=== PATIENT | female | born 1975 | race Caucasian/White ===

== ENCOUNTER → 2017-12-06 | Outpatient (CLI) | payer OTHER ==
[~2017-12-06] MED LIST: BUSP10TA3 PO; CLOB30CR5 TP; GLIM2TAB3 PO; LISI-613 PO; METF10004 PO; METF500T6 PO; OMEP20TA25 PO; VIT D3 PO
[2017-12-06 11:32] LABS: ALBUMIN 3.7 g/dL (3.5-5.0); BILIRUBIN,TOTAL 0.6 mg/dL (0.2-1.0); CREATININE 0.7 mg/dL (0.5-1.5); POTASSIUM 3.9 mmol/L (3.5-5.1); THYROID STIMULATING HORMONE 1.24 uIU/mL (0.36-3.74); TOTAL PROTEIN, SERUM 7.8 g/dL (6.0-8.3)
[2017-12-06 11:34] LABS: HEMOGLOBIN A1C 7.2 % (4.0-6.0)
[2017-12-07 09:18] LABS: VITAMIN D, 25-HYDROXY 30.9 ng/mL (30.0-100.0)
== END | disposition home or self-care (01) ==
LOC: LAB 10:43
PROVIDERS: ATTEND Family Medicine
DX: E11.649 Type 2 diabetes mellitus with hypoglycemia without coma (principal); E55.9 Vitamin D deficiency, unspecified; E78.2 Mixed hyperlipidemia; F32.9 Major depressive disorder, single episode, unspecified
CPT/HCPCS: 36415; 80053; 80061; 82306; 83036; 84439; 84443; 84480; 84481

== ENCOUNTER → 2018-01-17 | Outpatient (CLI) | payer OTHER ==
[2018-01-17 14:45] LABS: BASOPHILS % (AUTO) 0.6 % (0.0-5.0); EOSINOPHILS % (AUTO) 1.8 % (0.0-8.0); HEMATOCRIT 42.4 % (36-48); LYMPHOCYTES % (AUTO) 25.3 % (21.0-51.0); MEAN CORPUSCULAR HEMOGLOBIN 30.4 pg (27.0-33.0); MEAN CORPUSCULAR HGB CONC 34.5 g/dL (32.0-36.0); MEAN CORPUSCULAR VOLUME 88.1 fL (79-99); MONOCYTES % (AUTO) 7.1 % (3.0-13.0); NEUTROPHILS % (AUTO) 65.2 % (40.0-77.0); PLATELET COUNT (AUTO) 231 K/uL (130-400); RED BLOOD CELL COUNT(AUTO) 4.81 MIL/uL (4.00-5.50); RED CELL DISTRIBUTION WIDTH 12.6 % (11.0-15.5); WHITE BLOOD COUNT (AUTO) 9.5 K/uL (4.8-10.8)
[2018-01-17 14:58] LABS: ALBUMIN 3.8 g/dL (3.5-5.0); BILIRUBIN,TOTAL 0.4 mg/dL (0.2-1.0); CREATININE 0.7 mg/dL (0.5-1.5); POTASSIUM 4.2 mmol/L (3.5-5.1)
[2018-01-17 15:10] LABS: APPEARANCE,URINE Clear (CLEAR); BILIRUBIN,URINE Negative (NEGATIVE); COLOR,URINE Yellow (YELLOW); GLUCOSE, URINE (UA) 500 mg/dL (NEGATIVE); KETONES,URINE Negative (NEGATIVE); LEUKOCYTE ESTERASE ,URINE Negative (NEGATIVE); NITRATE,URINE Negative (NEGATIVE); OCCULT BLOOD,URINE Negative (NEGATIVE); PROTEIN,URINE Negative (NEGATIVE); UROBILINOGEN,URINE 0.2 mg/dL (0.2-1.0)
[2018-01-17 15:18] LABS: BACTERIA,URINE Rare /HPF (None Seen); RBC,URINE 0-1 /HPF (0-1); SQUAMOUS EPITHELIAL CELL,UR Rare /LPF (0-2); WBC,URINE 0-1 /HPF (0-1)
== END ==
LOC: LAB 14:21
PROVIDERS: ATTEND Family Medicine
DX: R10.11 Right upper quadrant pain (principal); R19.7 Diarrhea, unspecified
CPT/HCPCS: 36415; 80053; 81001; 85025; 87088

== ENCOUNTER → 2018-01-26 | Outpatient (CLI) | payer OTHER | END | disposition home or self-care (01) | LOC: RAH 08:02 | PROVIDERS: ATTEND Family Medicine | DX: K76.0 Fatty (change of) liver, not elsewhere classified (principal); R19.7 Diarrhea, unspecified | CPT/HCPCS: 76700 ==

== ENCOUNTER 2018-03-01 07:09 | Emergency (ER) | payer OTHER ==
[2018-03-01] MEDS ORDERED: ONDANSETRON HCL MDV 20ML 2 MG/ML VIAL ONE (07:38)
[2018-03-01] MEDS ORDERED: ASPIRIN 325 MG TABLET ONE (07:38)
[2018-03-01] MEDS ORDERED: KETOROLAC TROMETHAMINE 30MG/ML ONE (07:38)
[2018-03-01] MEDS ORDERED: SODIUM CHLORIDE 0.9% 500ML 500 ML IV ONE (07:39)
[2018-03-01 07:42] LABS: BASOPHILS % (AUTO) 0.7 % (0.0-5.0); EOSINOPHILS % (AUTO) 1.9 % (0.0-8.0); LYMPHOCYTES % (AUTO) 28.7 % (21.0-51.0); MEAN CORPUSCULAR HEMOGLOBIN 30.4 pg (27.0-33.0); MEAN CORPUSCULAR HGB CONC 34.6 g/dL (32.0-36.0); MEAN CORPUSCULAR VOLUME 87.7 fL (79-99); MONOCYTES % (AUTO) 7.3 % (3.0-13.0); NEUTROPHILS % (AUTO) 61.4 % (40.0-77.0); PLATELET COUNT (AUTO) 209 K/uL (130-400); RED BLOOD CELL COUNT(AUTO) 4.56 MIL/uL (4.00-5.50); RED CELL DISTRIBUTION WIDTH 12.5 % (11.0-15.5); WHITE BLOOD COUNT (AUTO) 8.1 K/uL (4.8-10.8)
[2018-03-01 07:52] LABS: CREATININE 0.7 mg/dL (0.5-1.5); POTASSIUM 4.2 mmol/L (3.5-5.1)
[2018-03-01 08:06] LABS: B-TYPE NATRIURETIC PEPTIDE 8 pg/mL (0-100)
[2018-03-01 08:08] LABS: INR 0.89 (0.85-1.15); PARTIAL THROMBOPLASTIN TIME 25.9 SEC (26.3-35.5); PROTHROMBIN TIME 9.4 SEC (9.6-11.6)
[2018-03-01 08:28] LABS: ALBUMIN 3.6 g/dL (3.5-5.0); BILIRUBIN,TOTAL 0.4 mg/dL (0.2-1.0); CREATINE KINASE MB 0.6 ng/mL (0.5-3.6); TOTAL PROTEIN, SERUM 7.6 g/dL (6.0-8.3)
[2018-03-01] MEDS ORDERED: MORPHINE SULFATE 4 MG/1ML SYG ONE (09:11)
== END 2018-03-01 10:34 | disposition home or self-care (01) ==
LOC: EDH 07:09
DX: R07.9 Chest pain, unspecified (principal); R10.13 Epigastric pain; E11.9 Type 2 diabetes mellitus without complications; E78.5 Hyperlipidemia, unspecified; I10 Essential (primary) hypertension; Z88.8 Allergy status to other drugs, medicaments and biological substances; Z90.710 Acquired absence of both cervix and uterus
CPT/HCPCS: 36415; 71045; 74176; 80053; 82550; 82553; 83690; 83874; 83880; 84484; 84702; 85025; 85610; 85730; 93005; 94761; 96361; 96374; 96375; 99285; J1885; J2270; J7040

== ENCOUNTER → 2018-04-01 | Outpatient (CLI) | payer OTHER ==
[2018-04-01 10:13] LABS: EOSINOPHILS % (AUTO) 1.3 % (0.0-8.0); HEMATOCRIT 42.7 % (36-48); LYMPHOCYTES % (AUTO) 28.7 % (21.0-51.0); MEAN CORPUSCULAR HEMOGLOBIN 30.2 pg (27.0-33.0); MEAN CORPUSCULAR HGB CONC 34.5 g/dL (32.0-36.0); MEAN CORPUSCULAR VOLUME 87.7 fL (79-99); PLATELET COUNT (AUTO) 202 K/uL (130-400); RED BLOOD CELL COUNT(AUTO) 4.86 MIL/uL (4.00-5.50); RED CELL DISTRIBUTION WIDTH 12.5 % (11.0-15.5); WHITE BLOOD COUNT (AUTO) 7.6 K/uL (4.8-10.8)
[2018-04-01 10:20] LABS: HEMOGLOBIN A1C 7.2 % (4.0-6.0)
[2018-04-01 10:26] LABS: CHOLESTEROL 218 mg/dL (<200); HDL CHOLESTEROL 38 mg/dL (35-85); LDL DIRECT 139 mg/dL (0-99); TRIGLYCERIDES 250 mg/dL (30-200)
== END | disposition home or self-care (01) ==
LOC: LAB 09:29
PROVIDERS: ATTEND Family Medicine
DX: E11.649 Type 2 diabetes mellitus with hypoglycemia without coma (principal); E78.2 Mixed hyperlipidemia; I88.8 Other nonspecific lymphadenitis; E55.9 Vitamin D deficiency, unspecified
CPT/HCPCS: 36415; 80061; 82306; 83036; 85025

== ENCOUNTER → 2018-05-09 | Outpatient (CLI) | payer OTHER | END | disposition home or self-care (01) | LOC: RAH 16:36 | PROVIDERS: ATTEND Physical Medicine & Rehabilitation | DX: M54.2 Cervicalgia (principal); M54.16 Radiculopathy, lumbar region | CPT/HCPCS: 72040; 72110 ==

== ENCOUNTER → 2018-09-02 | Outpatient (CLI) | payer OTHER ==
[~2018-09-02] MED LIST changes: +BUSP5TAB3 PO; +GABA-529 PO; +METF-444 PO; +METF-446 PO; -METF10004 PO; -METF500T6 PO; +ROSU10TA27 PO
== END | disposition home or self-care (01) ==
LOC: RAH 11:51
PROVIDERS: ATTEND Internal Medicine
DX: M54.6 Pain in thoracic spine (principal); M53.3 Sacrococcygeal disorders, not elsewhere classified; Z79.899 Other long term (current) drug therapy
CPT/HCPCS: 36415; 72072; 72202; 85651; 86140; 86431; 86812

== ENCOUNTER 2018-09-05 06:52 | Observation (INO) | payer OTHER ==
[~2018-09-05] VITALS: Ht 149.9 cm; Wt 77.1 kg
[~2018-09-05 06:52] MED LIST changes: -BUSP5TAB3 PO; -GABA-529 PO; -ROSU10TA27 PO
[2018-09-05] MEDS ORDERED: NITROGLYCERIN 0.4 MG SL TAB SL ONE (08:09)
[2018-09-05] MEDS ORDERED: ASPIRIN 81MG TAB.CHEW ONE (08:09)
[2018-09-05 08:11] LABS: BASOPHILS % (AUTO) 0.6 % (0.0-5.0); HEMATOCRIT 40.9 % (36-48); LYMPHOCYTES % (AUTO) 30.5 % (21.0-51.0); MEAN CORPUSCULAR HEMOGLOBIN 29.7 pg (27.0-33.0); NEUTROPHILS % (AUTO) 61.9 % (40.0-77.0); PLATELET COUNT (AUTO) 194 K/uL (130-400); RED BLOOD CELL COUNT(AUTO) 4.54 MIL/uL (4.00-5.50); RED CELL DISTRIBUTION WIDTH 12.3 % (11.0-15.5); WHITE BLOOD COUNT (AUTO) 10.3 K/uL (4.8-10.8)
[2018-09-05 08:34] LABS: APPEARANCE,URINE CLEAR (CLEAR); BILIRUBIN,URINE NEGATIVE (NEGATIVE); COLOR,URINE YELLOW (YELLOW); GLUCOSE, URINE (UA) NEGATIVE (NEGATIVE); KETONES,URINE NEGATIVE (NEGATIVE); LEUKOCYTE ESTERASE ,URINE NEGATIVE (NEGATIVE); NITRATE,URINE NEGATIVE (NEGATIVE); OCCULT BLOOD,URINE NEGATIVE (NEGATIVE); PROTEIN,URINE NEGATIVE (NEGATIVE); UROBILINOGEN,URINE 0.2 mg/dL (0.2-1.0)
[2018-09-05 08:41] LABS: CREATININE 0.7 mg/dL (0.5-1.5); POTASSIUM 4.3 mmol/L (3.5-5.1)
[2018-09-05 08:59] LABS: ALBUMIN 3.7 g/dL (3.5-5.0); BILIRUBIN,TOTAL 0.4 mg/dL (0.2-1.0); TOTAL PROTEIN, SERUM 7.3 g/dL (6.0-8.3)
[2018-09-05] MEDS ORDERED: ONDANSETRON HCL 4 MG/2 ML VIAL ONE (10:10)
[2018-09-05] MEDS ORDERED: MORPHINE SULFATE 4 MG/1ML SYG ONE (10:11)
[2018-09-05] MEDS ORDERED: CLOPIDOGREL BISULFATE 75 MG TAB PO SCH (11:00)
[2018-09-05] MEDS ORDERED: ONDANSETRON HCL 4 MG/2 ML VIAL IV PRN (11:00)
[2018-09-05 11:47] LABS: CREATINE KINASE, TOTAL 37 U/L (21-232); MYOGLOBIN 24 ng/mL (10-92); TROPONIN I < 0.04 ng/mL (0.00-0.06)
[2018-09-05 11:50] VITALS: BP 130/70
[2018-09-05] MEDS ORDERED: GABA-529 PO (12:10)
[2018-09-05] MEDS ORDERED: BUSP5TAB3 PO (12:10)
[2018-09-05] MEDS ORDERED: ROSU10TA27 PO (12:10)
[2018-09-05] MEDS: NITROGLYCERIN 1GM/1 INCH PACKET TD SCH ×2 (13:37→23:36)
[2018-09-05] MEDS: SODIUM CHLORIDE 0.9% 1000ML 1,000 ML IV SCH ×2 (13:37→22:33)
[2018-09-05 16:00] VITALS: BP 115/75
[2018-09-05] MEDS: ACETAMINOPHEN 325 MG TAB PO PRN (18:24)
[2018-09-05 19:00] VITALS: BP 125/68
[2018-09-05] MEDS: METOPROLOL TARTRATE 25 MG TAB PO SCH (20:28)
[2018-09-05] MEDS: MORPHINE SULFATE 2 MG/ML 1ML SYG IV PRN (20:51)
[2018-09-05 23:00] VITALS: BP 112/63
[2018-09-06 03:00] VITALS: BP 98/56
[2018-09-06] MEDS: NITROGLYCERIN 1GM/1 INCH PACKET TD SCH ×2 (03:00→12:20)
[2018-09-06] MEDS: ACETAMINOPHEN 325 MG TAB PO PRN ×3 (05:49→16:27)
[2018-09-06] MEDS: SODIUM CHLORIDE 0.9% 1000ML 1,000 ML IV SCH (06:56)
[2018-09-06 07:59] VITALS: BP 100/62
[2018-09-06 08:00] VITALS: BP 100/53
[2018-09-06] MEDS: METOPROLOL TARTRATE 25 MG TAB PO SCH ×2 (09:00→19:54)
[2018-09-06] MEDS ORDERED: PANTOPRAZOLE SODIUM 40 MG TABLET.DR PO SCH (09:00)
[2018-09-06] MEDS ORDERED: ENOXAPARIN SODIUM 40 MG/0.4 ML SYRINGE SQ SCH (09:00)
[2018-09-06] MEDS ORDERED: ASPIRIN 325 MG TABLET PO SCH (09:00)
[2018-09-06 11:00] VITALS: BP 109/72
[2018-09-06 16:00] VITALS: BP 105/64
[2018-09-06] MEDS: MORPHINE SULFATE 2 MG/ML 1ML SYG IV PRN (19:54)
[2018-09-06 19:57] VITALS: BP 125/62
[2018-09-07] MEDS ORDERED: ASPIRIN 81MG TAB.CHEW PO SCH (09:00)
== END 2018-09-06 21:50 | disposition home or self-care (01) ==
LOC: EDH 06:52 → EDHIP 10:55 → 4BH 11:46
PROVIDERS: ADMIT Internal Medicine; ATTEND Internal Medicine
DX: R07.89 Other chest pain (principal); E11.9 Type 2 diabetes mellitus without complications; I10 Essential (primary) hypertension; E78.2 Mixed hyperlipidemia; E66.01 Morbid (severe) obesity due to excess calories; G47.33 Obstructive sleep apnea (adult) (pediatric); Z80.51 Family history of malignant neoplasm of kidney; Z82.0 Family history of epilepsy and other diseases of the nervous system; Z82.5 Family history of asthma and other chronic lower respiratory diseases; Z82.49 Family history of ischemic heart disease and other diseases of the circulatory system; Z83.3 Family history of diabetes mellitus; Z90.710 Acquired absence of both cervix and uterus; Z79.899 Other long term (current) drug therapy; Z90.49 Acquired absence of other specified parts of digestive tract; Z88.8 Allergy status to other drugs, medicaments and biological substances
CPT/HCPCS: 36415; 71046; 80053; 81003; 82550 ×2; 82948 ×6; 83690; 83874; 84484 ×3; 85025; 93005 ×2; 93306; 96372; 96374; 96376; 99291; G0378 ×35; J1650; J2270; J2405

== ENCOUNTER → 2018-09-22 | Outpatient (CLI) | payer OTHER ==
[~2018-09-22] MED LIST changes: -BUSP10TA3 PO; +BUSP5TAB3 PO; -CLOB30CR5 TP; +GABA-529 PO; -GLIM2TAB3 PO; +ROSU10TA27 PO; -VIT D3 PO
== END | disposition home or self-care (01) ==
LOC: RAH 12:17
PROVIDERS: ATTEND Family Medicine
DX: N60.02 Solitary cyst of left breast (principal); N60.01 Solitary cyst of right breast; E11.9 Type 2 diabetes mellitus without complications
CPT/HCPCS: 76641; 77066

== ENCOUNTER → 2018-10-25 | Outpatient (CLI) | payer OTHER | END | disposition home or self-care (01) | LOC: SLP 19:55 | PROVIDERS: ATTEND Family Medicine | DX: G47.33 Obstructive sleep apnea (adult) (pediatric) (principal); E11.9 Type 2 diabetes mellitus without complications | CPT/HCPCS: 95810 ==

== ENCOUNTER → 2018-10-27 | Outpatient (CLI) | payer OTHER | END | disposition home or self-care (01) | LOC: SLP 20:27 | PROVIDERS: ATTEND Family Medicine | DX: G47.33 Obstructive sleep apnea (adult) (pediatric) (principal); E11.9 Type 2 diabetes mellitus without complications | CPT/HCPCS: 95811 ==

== ENCOUNTER → 2018-12-02 | Outpatient (CLI) | payer OTHER ==
[2018-12-02 09:29] LABS: APPEARANCE,URINE Clear (CLEAR); BILIRUBIN,URINE Large (NEGATIVE); COLOR,URINE Dark Yellow (YELLOW); GLUCOSE, URINE (UA) Negative (NEGATIVE); KETONES,URINE Trace mg/dL (NEGATIVE); LEUKOCYTE ESTERASE ,URINE Trace (NEGATIVE); NITRATE,URINE Negative (NEGATIVE); OCCULT BLOOD,URINE Negative (NEGATIVE); PROTEIN,URINE Trace (NEGATIVE)
[2018-12-02 09:34] LABS: HEMOGLOBIN A1C 6.6 % (4.0-6.0)
[2018-12-02 09:41] LABS: BACTERIA,URINE None Seen /HPF (None Seen); RBC,URINE None Seen /HPF (0-1); SQUAMOUS EPITHELIAL CELL,UR 0-2 /HPF (0-2)
[2018-12-02 09:51] LABS: ALBUMIN 3.8 g/dL (3.5-5.0); BILIRUBIN,TOTAL 0.5 mg/dL (0.2-1.0); CREATININE 0.7 mg/dL (0.5-1.5); POTASSIUM 4.2 mmol/L (3.5-5.1)
== END | disposition home or self-care (01) ==
LOC: LAB 08:42
PROVIDERS: ATTEND Family Medicine
DX: E11.649 Type 2 diabetes mellitus with hypoglycemia without coma (principal); E55.9 Vitamin D deficiency, unspecified; E78.2 Mixed hyperlipidemia; R39.11 Hesitancy of micturition
CPT/HCPCS: 36415; 80053; 80061; 81001; 82306; 83036; 87088

== ENCOUNTER 2019-03-27 13:20 | Emergency (ER) | payer OTHER ==
[2019-03-27] MEDS ORDERED: ACETAMINOPHEN-CODEINE 300/30MG TAB ONE (14:14)
[2019-03-27] MEDS ORDERED: CYCLOBENZAPRINE HCL 10 MG TABLET ONE (14:14)
[2019-03-27] MEDS ORDERED: KETOROLAC TROMETHAMINE 60 MG/2 ML VIAL ONE (14:14)
== END 2019-03-27 15:27 | disposition home or self-care (01) ==
LOC: EDH 13:20
DX: S43.491A Other sprain of right shoulder joint, initial encounter (principal); S53.491A Other sprain of right elbow, initial encounter; S29.011A Strain of muscle and tendon of front wall of thorax, initial encounter; S63.8X1A Sprain of other part of right wrist and hand, initial encounter; E78.5 Hyperlipidemia, unspecified; I10 Essential (primary) hypertension; E11.9 Type 2 diabetes mellitus without complications; Z90.710 Acquired absence of both cervix and uterus; Z90.49 Acquired absence of other specified parts of digestive tract; Z88.1 Allergy status to other antibiotic agents; Z91.041 Radiographic dye allergy status; V49.49XA Driver injured in collision with other motor vehicles in traffic accident, initial encounter; Y93.89 Activity, other specified; Y92.89 Other specified places as the place of occurrence of the external cause; Y99.8 Other external cause status
CPT/HCPCS: 71101; 73030; 73080; 73130; 96372; 99284; J1885

== ENCOUNTER → 2019-12-15 | Outpatient (CLI) | payer BC ==
[~2019-12-15] MED LIST changes: -ROSU10TA27 PO; +ROSU10TA28 PO
== END | disposition home or self-care (01) ==
LOC: RAH 10:14
PROVIDERS: ATTEND Physical Medicine & Rehabilitation
DX: M51.27 Other intervertebral disc displacement, lumbosacral region (principal); M48.07 Spinal stenosis, lumbosacral region
CPT/HCPCS: 72148

== ENCOUNTER → 2020-01-06 | Outpatient (CLI) | payer BC | END | disposition home or self-care (01) | LOC: RAH 10:51 | PROVIDERS: ATTEND Physical Medicine & Rehabilitation | DX: M54.12 Radiculopathy, cervical region (principal) | CPT/HCPCS: 72141 ==

== ENCOUNTER → 2020-01-15 | Outpatient (CLI) | payer BC | END | disposition home or self-care (01) | LOC: RAH 13:53 | PROVIDERS: ATTEND Physical Medicine & Rehabilitation | DX: M75.32 Calcific tendinitis of left shoulder (principal) | CPT/HCPCS: 73030 ==

== ENCOUNTER → 2020-05-06 | Outpatient (CLI) | payer BC | END | disposition home or self-care (01) | LOC: RAH 15:26 | PROVIDERS: ATTEND Family Medicine | DX: R10.31 Right lower quadrant pain (principal); I87.8 Other specified disorders of veins; Z90.49 Acquired absence of other specified parts of digestive tract ==

== ENCOUNTER 2020-05-08 18:38 | Inpatient (IN) | payer BC ==
[~2020-05-08] VITALS: Ht 149.9 cm; Wt 67.9 kg
[2020-05-08 19:56] LABS: APPEARANCE,URINE Clear (CLEAR); BILIRUBIN,URINE Negative (NEGATIVE); COLOR,URINE Yellow (YELLOW); GLUCOSE, URINE (UA) Negative (NEGATIVE); KETONES,URINE 15 mg/dL (NEGATIVE); LEUKOCYTE ESTERASE ,URINE Negative (NEGATIVE); NITRATE,URINE Negative (NEGATIVE); OCCULT BLOOD,URINE Negative (NEGATIVE); PROTEIN,URINE Negative (NEGATIVE)
[2020-05-08] MEDS ORDERED: ONDANSETRON HCL 4 MG/2 ML VIAL ONE (20:15)
[2020-05-08] MEDS ORDERED: MORPHINE SULFATE 4 MG/1ML SYG ONE ×2 (20:16→21:28)
[2020-05-08 20:19] LABS: BASOPHILS % (AUTO) 0.4 % (0.0-5.0); EOSINOPHILS % (AUTO) 1.3 % (0.0-8.0); HEMATOCRIT 43.1 % (36-48); LYMPHOCYTES % (AUTO) 28.5 % (21.0-51.0); MEAN CORPUSCULAR HGB CONC 32.9 g/dL (32.0-36.0); MEAN CORPUSCULAR VOLUME 91.1 fL (79-99); MONOCYTES % (AUTO) 8.1 % (3.0-13.0); NEUTROPHILS % (AUTO) 61.3 % (40.0-77.0); PLATELET COUNT (AUTO) 199 K/uL (130-400); RED BLOOD CELL COUNT(AUTO) 4.73 MIL/uL (4.00-5.50); RED CELL DISTRIBUTION WIDTH 12.4 % (11.0-15.5); WHITE BLOOD COUNT (AUTO) 7.9 K/uL (4.8-10.8)
[2020-05-08 20:29] LABS: CREATININE 0.6 mg/dL (0.5-1.5); POTASSIUM 3.6 mmol/L (3.5-5.1)
[2020-05-08 20:30] LABS: INR 0.92 (0.85-1.15); PARTIAL THROMBOPLASTIN TIME 32.4 SEC (26.3-35.5)
[2020-05-08 20:33] LABS: ALBUMIN 3.9 g/dL (3.5-5.0); BILIRUBIN,TOTAL 0.6 mg/dL (0.2-1.0); TOTAL PROTEIN, SERUM 8.3 g/dL (6.0-8.3)
[2020-05-08] MEDS ORDERED: PHARMACY COMMUNICATION MISC SCH (23:45)
[2020-05-08] MEDS ORDERED: SODIUM CHLORIDE 0.9% 1000ML 1,000 ML IV SCH (23:45)
[2020-05-08] MEDS ORDERED: MORPHINE SULFATE 2 MG/ML 1ML SYG IVP PRN (23:45)
[2020-05-08] MEDS ORDERED: ONDANSETRON HCL 4 MG/2 ML VIAL IVP PRN (23:45)
[2020-05-09] MEDS ORDERED: MORPHINE SULFATE 2 MG/ML 1ML SYG ONE (00:57)
[2020-05-09] MEDS ORDERED: ONDANSETRON HCL 4 MG/2 ML VIAL ONE (00:57)
[2020-05-09] MEDS ORDERED: ZOSYN 3.375GM+NS 50ML 50 ML IV ONE (00:57)
[2020-05-09 01:45] VITALS: BP 125/74
[2020-05-09] MEDS ORDERED: SULFAD500 PO ×2 (02:06)
[2020-05-09] MEDS ORDERED: DICY20TA11 PO (02:06)
[2020-05-09] MEDS ORDERED: DULA0.75 SQ ×2 (02:06)
[2020-05-09] MEDS ORDERED: AMOX500C2 PO (02:06)
[2020-05-09 03:20] VITALS: BP 107/60
[2020-05-09] MEDS: ZOSYN 3.375GM+NS 50ML 50 ML IV SCH ×4 (06:10→23:33)
[2020-05-09] MEDS ORDERED: HYDRALAZINE HCL 20 MG/ML VIAL IV PRN (07:45)
[2020-05-09 08:00] VITALS: BP 120/72
[2020-05-09] MEDS: FAMOTIDINE/PF 20 MG/2 ML VIAL IV SCH ×2 (08:16→21:01)
[2020-05-09] MEDS: HYDROMORPHONE HCL 0.5 MG/0.5 ML ML IVP PRN ×3 (08:17→23:34)
[2020-05-09] MEDS: ONDANSETRON HCL 4 MG/2 ML VIAL IVP PRN ×2 (08:48→16:48)
[2020-05-09 11:25] VITALS: BP 109/66
--- NOTE | 2020-05-09 11:30 | NUR ---
MET W PATIENT FOR DC PLANNING. SPOUSE AT BEDSIDE, PATIENT STATES IS INDEPENDENT, ACTIVE, NO DME OR HOME SERVICES, PT IS EMPLOYED, DRIVES, DCP IS HOME, SPOUSE AGA TO PROVIDE TRANSPORT WAITING ON ALTERNATE SURGEON FOR CONSULT. CM TO FOLLOW. Addendum: 05/09/20 at 1809 by SHANE CERVANTES RN CM Amended: Links added.
[2020-05-09] MEDS ORDERED: LACTATED RINGERS 1000ML 1,000 ML IV SCH (15:30)
[2020-05-09 16:00] VITALS: BP 121/69
[2020-05-09] MEDS ORDERED: ACETAMINOPHEN 325 MG TAB ONE (16:30)
--- NOTE | 2020-05-09 16:46 | NUR ---
NUTRITION EDUCATION RD provided Diverticulitis and High Fiber Nutrition Education. RD reviewed reference materials with Pt. Pt discussed previously researched implications. REGGIE answered all of Pt questions. Addendum: 05/09/20 at [address] RD Amended: Links added.
--- NOTE | 2020-05-09 16:48 | NUR ---
NUTRITION NOTE Pt admitted with Diverticulitis with Perforation. Pt NPO pending surgical evaluation. Lab values WNL. Pt with Obesity Class I (BMI 30.2). RD provided Nutrition education. Recommend Heart Healthy, 75gm CC, GI Soft/Provo diet order when medically feasible. RD to continue to monitor. Please notify when additional nutrition concerns arise. Thank you.
--- NOTE | 2020-05-09 18:05 | NUR ---
DISCHARGE DISPOSITION EXPECTED TO HOME, ATTILA TO FOLLOW Addendum: 05/09/20 at 1806 by SHANE CERVANTES RN CM Amended: Links added.
[2020-05-09] MEDS ORDERED: DEXTROSE 50%-WATER 50 ML DISP.SYRIN IV ONE (19:43)
[2020-05-09] MEDS ORDERED: DEXTROSE 5%-LACTATED RINGERS 1,000 ML IV ONE (19:43)
[2020-05-09] MEDS ORDERED: GLUCAGON 1MG KIT 1 MG ML IM PRN (19:45)
[2020-05-09] MEDS ORDERED: DEXTROSE 50%-WATER 50 ML DISP.SYRIN IV PRN (19:45)
[2020-05-09] MEDS: DEXTROSE 5%-LACTATED RINGERS 1,000 ML IV SCH (19:45)
[2020-05-09 19:49] VITALS: BP 133/77
[2020-05-10] VITALS: BP 120/78
[2020-05-10] MEDS: DEXTROSE 5%-LACTATED RINGERS 1,000 ML IV SCH ×2 (03:41→20:09)
[2020-05-10 04:06] VITALS: BP 108/67
[2020-05-10 04:50] LABS: HEMATOCRIT 36.2 % (36-48); MEAN CORPUSCULAR HEMOGLOBIN 30.3 pg (27.0-33.0); MEAN CORPUSCULAR HGB CONC 33.4 g/dL (32.0-36.0); MEAN CORPUSCULAR VOLUME 90.5 fL (79-99); RED CELL DISTRIBUTION WIDTH 11.9 % (11.0-15.5); WHITE BLOOD COUNT (AUTO) 6.9 K/uL (4.8-10.8)
[2020-05-10 05:13] LABS: CREATININE 0.6 mg/dL (0.5-1.5); POTASSIUM 3.6 mmol/L (3.5-5.1)
[2020-05-10 08:00] VITALS: BP 115/58
[2020-05-10] MEDS: FAMOTIDINE/PF 20 MG/2 ML VIAL IV SCH ×2 (08:15→20:09)
[2020-05-10] MEDS: ZOSYN 3.375GM+NS 50ML 50 ML IV SCH ×3 (08:15→23:25)
[2020-05-10] MEDS: HYDROMORPHONE HCL 0.5 MG/0.5 ML ML IVP PRN ×2 (08:37→23:52)
[2020-05-10 12:00] VITALS: BP 119/75
[2020-05-10] MEDS: ACETAMINOPHEN 325 MG TAB PO PRN ×2 (13:43→20:38)
[2020-05-10] MEDS: ONDANSETRON HCL 4 MG/2 ML VIAL IVP PRN ×2 (13:46→23:53)
[2020-05-10 16:00] VITALS: BP 110/64
[2020-05-10 20:00] VITALS: BP 123/78
[2020-05-11] VITALS (7 sets, daily range): BP systolic 112–136; BP diastolic 59–80
[2020-05-11 05:51] LABS: BASOPHILS % (AUTO) 0.5 % (0.0-5.0); EOSINOPHILS % (AUTO) 0.8 % (0.0-8.0); HEMATOCRIT 34.9 % (36-48); LYMPHOCYTES % (AUTO) 40.9 % (21.0-51.0); MEAN CORPUSCULAR HEMOGLOBIN 30.6 pg (27.0-33.0); MEAN CORPUSCULAR HGB CONC 33.5 g/dL (32.0-36.0); MEAN CORPUSCULAR VOLUME 91.4 fL (79-99); MONOCYTES % (AUTO) 9.3 % (3.0-13.0); NEUTROPHILS % (AUTO) 48.3 % (40.0-77.0); PLATELET COUNT (AUTO) 206 K/uL (130-400); RED BLOOD CELL COUNT(AUTO) 3.82 MIL/uL (4.00-5.50); WHITE BLOOD COUNT (AUTO) 6.5 K/uL (4.8-10.8)
[2020-05-11 06:03] LABS: CREATININE 0.7 mg/dL (0.5-1.5); POTASSIUM 3.3 mmol/L (3.5-5.1)
[2020-05-11] MEDS ORDERED: LIDOCAINE HCL-MPF 1% 2ML VIAL IV PRN (06:15)
[2020-05-11] MEDS ORDERED: POTASSIUM CHLORIDE 20MEQ/100ML 100 ML IV PRN (06:15)
[2020-05-11] MEDS: FAMOTIDINE/PF 20 MG/2 ML VIAL IV SCH ×2 (09:05→21:11)
[2020-05-11] MEDS: ZOSYN 3.375GM+NS 50ML 50 ML IV SCH ×2 (09:05→16:36)
[2020-05-11] MEDS: DEXTROSE 5%-LACTATED RINGERS 1,000 ML IV SCH (13:13)
[2020-05-11] MEDS: ONDANSETRON HCL 4 MG/2 ML VIAL IVP PRN (16:35)
[2020-05-11] MEDS: ACETAMINOPHEN 325 MG TAB PO PRN (16:36)
--- NOTE | 2020-05-11 19:50 | NUR ---
PM Assessment Received pt with spouse at the bedside, D5LR at 75cc/hr infusing well, routine assessment done, plan of care discuss reminded only on CLD for now if she will be tolerating it well with no problem then we will progress her to regular diet as ordered. Per pt stated only when she start taking some liquids earlier when she felt a little abdominal pain but if goes away. Currently denies discomfort.
[2020-05-12] MEDS: ZOSYN 3.375GM+NS 50ML 50 ML IV SCH ×4 (00:07→23:47)
[2020-05-12] MEDS: DEXTROSE 5%-LACTATED RINGERS 1,000 ML IV SCH ×2 (02:30→14:25)
[2020-05-12 03:36] VITALS: BP 117/74
[2020-05-12] MEDS: HYDROMORPHONE HCL 0.5 MG/0.5 ML ML IVP PRN ×2 (06:10→21:17)
[2020-05-12 07:54] LABS: HEMATOCRIT 35.5 % (36-48); MEAN CORPUSCULAR HEMOGLOBIN 29.8 pg (27.0-33.0); MEAN CORPUSCULAR HGB CONC 32.7 g/dL (32.0-36.0); MEAN CORPUSCULAR VOLUME 91.3 fL (79-99); RED BLOOD CELL COUNT(AUTO) 3.89 MIL/uL (4.00-5.50)
[2020-05-12 08:05] LABS: CREATININE 0.7 mg/dL (0.5-1.5); POTASSIUM 3.7 mmol/L (3.5-5.1)
[2020-05-12 08:24] VITALS: BP 122/61
[2020-05-12] MEDS: FAMOTIDINE/PF 20 MG/2 ML VIAL IV SCH ×2 (08:35→21:17)
[2020-05-12 11:54] VITALS: BP 121/77
[2020-05-12] MEDS ORDERED: ACETAMINOPHEN 325 MG TAB ONE (12:02)
[2020-05-12 16:00] VITALS: BP 137/86
--- NOTE | 2020-05-12 18:00 | NUR ---
note PATIENT HAS BEEN HAVING LOOSE STOOLS AND HAD BEEN SORT OF TOLERATING HER CLEAR LIQUID DIET BUT SHE STARTED REPORTING SOME PAIN AT THE END OF THE DAY. 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 SHE WAS PLACED NPO AND SHE WENT FOR CT ABDOMEN WITHOUT CONTRAST BECAUSE SHE IS ALLERGIC TO IODINE.
[2020-05-12 19:00] VITALS: BP 132/78
[2020-05-12] MEDS: ONDANSETRON HCL 4 MG/2 ML VIAL IVP PRN (21:17)
--- NOTE | 2020-05-12 21:20 | NUR ---
PAIN PT COMPLAINTS OF NAUSEA AND ABDOMINAL PAINS. SHIFT ASSESSMENT DONE, PLEASE REFER TO CHART. DUE MEDS ADMINISTERED, DILAUDID AND ZOFRAN IV GIVEN FOR NAUSEA AND PAIN. KEPT COMFORTABLE IN BED. CALL LIGHT WITHIN REACH. WILL RE-ASSESS PT. Addendum: 05/12/20 at 2251 by MARCELINO HOPSON RN RN Amended: Links added.
[2020-05-12 23:00] VITALS: BP 130/72
--- NOTE | 2020-05-13 01:30 | NUR ---
ROUNDS PT RESTING WELL, NO DISTRESS NOTED. KEPT RESTED AND COMFORTABLE. CALL LIGHT WITHIN REACH. WILL MONITOR PT.
[2020-05-13 03:00] VITALS: BP 127/75
[2020-05-13] MEDS: DEXTROSE 5%-LACTATED RINGERS 1,000 ML IV SCH ×3 (03:09→19:55)
--- NOTE | 2020-05-13 05:46 | NUR ---
ROUNDS PT SLEPT AT INTERVALS DURING THE SHIFT. INTERMITTENT ABDOMINAL PAINS. NO CONCERNS VERBALIZED AT THIS TIME. KEPT RESTED AND COMFORTABLE IN BED. KEPT NPO FOR NOW. FOR MORE CARE.
[2020-05-13 07:30] VITALS: BP 122/72
[2020-05-13] MEDS: FAMOTIDINE/PF 20 MG/2 ML VIAL IV SCH ×2 (08:29→19:59)
[2020-05-13] MEDS: ZOSYN 3.375GM+NS 50ML 50 ML IV SCH ×2 (08:29→17:08)
[2020-05-13] MEDS: HYDROMORPHONE HCL 0.5 MG/0.5 ML ML IVP PRN (08:42)
[2020-05-13] MEDS ORDERED: ALPRAZOLAM 0.25 MG TABLET PO PRN (10:45)
[2020-05-13 11:00] VITALS: BP 117/75
[2020-05-13 16:00] VITALS: BP 117/75
[2020-05-13] MEDS: ACETAMINOPHEN 325 MG TAB PO PRN (20:03)
[2020-05-13 20:24] VITALS: BP 117/76
[2020-05-13] MEDS: ONDANSETRON HCL 4 MG/2 ML VIAL IVP PRN (22:07)
[2020-05-13 23:56] VITALS: BP 128/89
[2020-05-14] MEDS: HYDROMORPHONE HCL 0.5 MG/0.5 ML ML IVP PRN ×2 (00:14→16:16)
[2020-05-14] MEDS: ZOSYN 3.375GM+NS 50ML 50 ML IV SCH ×3 (00:17→15:57)
[2020-05-14 03:47] VITALS: BP 118/64
[2020-05-14 05:00] LABS: HEMATOCRIT 34.5 % (36-48); MEAN CORPUSCULAR HEMOGLOBIN 29.6 pg (27.0-33.0); MEAN CORPUSCULAR HGB CONC 32.8 g/dL (32.0-36.0); MEAN CORPUSCULAR VOLUME 90.3 fL (79-99); RED BLOOD CELL COUNT(AUTO) 3.82 MIL/uL (4.00-5.50); RED CELL DISTRIBUTION WIDTH 11.9 % (11.0-15.5); WHITE BLOOD COUNT (AUTO) 6.4 K/uL (4.8-10.8)
[2020-05-14 05:25] LABS: CREATININE 0.7 mg/dL (0.5-1.5); POTASSIUM 3.1 mmol/L (3.5-5.1)
[2020-05-14] MEDS: DEXTROSE 5%-LACTATED RINGERS 1,000 ML IV SCH (06:25)
[2020-05-14 07:30] VITALS: BP 128/68
[2020-05-14] MEDS: FAMOTIDINE/PF 20 MG/2 ML VIAL IV SCH (08:56)
[2020-05-14] MEDS ORDERED: AMOX-429 PO ×2 (10:34)
[2020-05-14 11:00] VITALS: BP 127/72
[2020-05-14] MEDS: ACETAMINOPHEN 325 MG TAB PO PRN (12:29)
[2020-05-14 16:00] VITALS: BP 126/77
== END 2020-05-14 19:00 | disposition home or self-care (01) | DRG 392 ==
LOC: EDH 18:38 → OBSVTOIN 23:36 → EDHIP 23:36 → 3BH 05-09 01:38
PROVIDERS: ADMIT Internal Medicine Critical Care Medicine; ATTEND Internal Medicine Critical Care Medicine
DX: K57.92 Diverticulitis of intestine, part unspecified, without perforation or abscess without bleeding (principal); E11.9 Type 2 diabetes mellitus without complications; I10 Essential (primary) hypertension; E78.5 Hyperlipidemia, unspecified; K21.9 Gastro-esophageal reflux disease without esophagitis; G47.30 Sleep apnea, unspecified; F41.9 Anxiety disorder, unspecified; G47.00 Insomnia, unspecified; M06.9 Rheumatoid arthritis, unspecified; Z90.711 Acquired absence of uterus with remaining cervical stump; Z79.84 Long term (current) use of oral hypoglycemic drugs; Z79.899 Other long term (current) drug therapy
CPT/HCPCS: 36415; 71045; 74176; 80048; 80053; 81003; 82270; 82550; 82948; 83630; 83690; 84484; 85025; 85027; 85610; 85730; 87046; 87507; 93005; G0378; J1170; J2270; J2405; J2543; J3480; J3490; J7030; J7070; J7120

== ENCOUNTER → 2020-05-15 | Outpatient (CLI) | payer BC ==
[~2020-05-15] MED LIST changes: +AMOX-429 PO; +AMOX500C2 PO; +DICY20TA11 PO; +DULA0.75 SQ; +SULFAD500 PO
== END | disposition home or self-care (01) ==
LOC: RAH 14:50
PROVIDERS: ATTEND Physical Medicine & Rehabilitation
DX: M51.34 Other intervertebral disc degeneration, thoracic region (principal)
CPT/HCPCS: 72146

== ENCOUNTER 2021-10-20 09:57 | Inpatient (IN) | payer BC ==
[~2021-10-20] VITALS: Ht 149.9 cm; Wt 68.0 kg
[~2021-10-20 09:57] MED LIST changes: -AMOX500C2 PO; -DICY20TA11 PO; -LISI-613 PO; +LISI20TA24 PO; -METF-444 PO; -METF-446 PO
[2021-10-20] MEDS ORDERED: 0.9%NACL 100ML 100 ML ONE ×2 (10:56→22:03)
[2021-10-20 10:59] LABS: BASOPHILS % (AUTO) 0.5 % (0.0-5.0); EOSINOPHILS % (AUTO) 2.1 % (0.0-8.0); HEMATOCRIT 40.2 % (36-48); LYMPHOCYTES % (AUTO) 20.9 % (21.0-51.0); MEAN CORPUSCULAR HEMOGLOBIN 29.6 pg (27.0-33.0); MEAN CORPUSCULAR HGB CONC 33.3 g/dL (32.0-36.0); MEAN CORPUSCULAR VOLUME 88.7 fL (79-99); MONOCYTES % (AUTO) 6.7 % (3.0-13.0); NEUTROPHILS % (AUTO) 69.5 % (40.0-77.0); PLATELET COUNT (AUTO) 256 K/uL (130-400); RED BLOOD CELL COUNT(AUTO) 4.53 MIL/uL (4.00-5.50); RED CELL DISTRIBUTION WIDTH 11.9 % (11.0-15.5); WHITE BLOOD COUNT (AUTO) 7.7 K/uL (4.8-10.8)
[2021-10-20] MEDS ORDERED: ONDANSETRON 4MG INJ IVP SCH (11:00)
[2021-10-20] MEDS ORDERED: ZOSYN 3.375GM +NS 50ML IV SCH ×2 (11:00→17:30)
[2021-10-20] MEDS ORDERED: 0.9%NACL 1000ML 1,000 ML IV SCH (11:00)
[2021-10-20] MEDS ORDERED: KETOROLAC 30MG VIAL (30MG/ML) IVP SCH (11:00)
[2021-10-20] MEDS ORDERED: MORPHINE 4 MG SYG IVP SCH (11:00)
[2021-10-20] MEDS: ZOSYN 3.375GM +NS 50ML IV SCH (11:06)
[2021-10-20 11:08] LABS: CREATININE 0.7 mg/dL (0.5-1.5); POTASSIUM 4.1 mmol/L (3.5-5.1)
[2021-10-20 11:12] LABS: ALBUMIN 3.8 g/dL (3.5-5.0); BILIRUBIN,TOTAL 0.3 mg/dL (0.2-1.0); TOTAL PROTEIN, SERUM 8.4 g/dL (6.0-8.3)
[2021-10-20] MEDS ORDERED: IOHEXOL-350 75 ML VIAL IV ONE (11:20)
[2021-10-20] MEDS ORDERED: DIATR MEGLU/DIATRIZOATE SODIUM 30 ML BOTTLE ONE (11:30)
[2021-10-20] MEDS ORDERED: FENTANYL CITRATE PF 50 MCG/1 ML 2ML VIAL IVP SCH (12:30)
[2021-10-20] MEDS ORDERED: DOCUSATE SODIUM 100 MG CAP PO PRN (17:30)
[2021-10-20] MEDS ORDERED: ACETAMINOPHEN 650 MG SUPPOSITORY RC PRN (17:30)
[2021-10-20] MEDS ORDERED: TEMAZEPAM 15 MG CAPSULE PO PRN (17:30)
[2021-10-20] MEDS ORDERED: FENTANYL CITRATE PF 50 MCG/1 ML 2ML VIAL IVP ONE (17:30)
[2021-10-20] MEDS ORDERED: LACTULOSE 20 GM/30 ML UDCUP PO PRN (17:30)
[2021-10-20] MEDS: LACTATED RINGERS 1000ML 1,000 ML IV SCH (17:48)
[2021-10-20] MEDS: MORPHINE 2 MG SYG IVP PRN (22:20)
[2021-10-20] MEDS ORDERED: HYDRALAZINE 20MG/ML VIAL IV PRN (23:00)
[2021-10-21 00:43] VITALS: BP 137/73
[2021-10-21] MEDS: ZOLPIDEM TARTRATE 5 MG TAB PO SCH ×2 (00:51→22:21)
[2021-10-21] MEDS: ACETAMINOPHEN 325 MG TAB PO PRN ×3 (00:51→22:20)
[2021-10-21] MEDS ORDERED: MELO-108 PO (01:25)
[2021-10-21] MEDS ORDERED: HYOS-28 PO (01:25)
[2021-10-21] MEDS ORDERED: ONDA4TAB4 PO (01:25)
[2021-10-21] MEDS: LACTATED RINGERS 1000ML 1,000 ML IV SCH ×4 (03:41→12:32)
[2021-10-21 04:00] VITALS: BP 113/71
[2021-10-21 05:35] LABS: BASOPHILS % (AUTO) 0.7 % (0.0-5.0); EOSINOPHILS % (AUTO) 3.8 % (0.0-8.0); HEMATOCRIT 37.4 % (36-48); LYMPHOCYTES % (AUTO) 32.5 % (21.0-51.0); MEAN CORPUSCULAR HEMOGLOBIN 29.7 pg (27.0-33.0); MEAN CORPUSCULAR HGB CONC 32.4 g/dL (32.0-36.0); MEAN CORPUSCULAR VOLUME 91.7 fL (79-99); MONOCYTES % (AUTO) 7.5 % (3.0-13.0); NEUTROPHILS % (AUTO) 55.3 % (40.0-77.0); PLATELET COUNT (AUTO) 240 K/uL (130-400); RED BLOOD CELL COUNT(AUTO) 4.08 MIL/uL (4.00-5.50); RED CELL DISTRIBUTION WIDTH 11.9 % (11.0-15.5)
[2021-10-21] MEDS: ZOSYN 3.375GM +NS 50ML IV SCH ×3 (05:40→22:21)
[2021-10-21 05:52] LABS: CREATININE 0.7 mg/dL (0.5-1.5); MAGNESIUM 1.8 mg/dL (1.80-2.40); PHOSPHORUS 4.2 mg/dL (2.5-4.9); POTASSIUM 3.9 mmol/L (3.5-5.1)
[2021-10-21 05:56] LABS: HEMOGLOBIN A1C 6.7 % (4.0-6.0)
[2021-10-21] MEDS: MORPHINE 2 MG SYG IVP PRN (06:02)
[2021-10-21 07:56] VITALS: BP 124/83
[2021-10-21] MEDS: MELOXICAM 7.5 MG TABLET PO SCH (08:25)
[2021-10-21] MEDS: PANTOPRAZOLE 40 MG/VIAL IVP SCH ×2 (08:25→22:21)
[2021-10-21] MEDS: GABAPENTIN 300 MG CAPSULE PO SCH ×2 (08:25→22:20)
[2021-10-21] MEDS: LISINOPRIL 20 MG TABLET PO SCH (08:26)
[2021-10-21] MEDS: ENOXAPARIN SODIUM 40 MG/0.4 ML SYRINGE SQ SCH (08:26)
[2021-10-21] MEDS: ONDANSETRON 4MG INJ IVP PRN (10:39)
[2021-10-21 11:00] VITALS: BP 121/72
[2021-10-21] MEDS: MORPHINE 4 MG SYG IVP PRN ×2 (12:30→17:46)
[2021-10-21 16:00] VITALS: BP 121/73
[2021-10-21 20:00] VITALS: BP 115/71
[2021-10-22] VITALS: BP 107/73
[2021-10-22] MEDS: LACTATED RINGERS 1000ML 1,000 ML IV SCH ×3 (02:18→20:27)
[2021-10-22 04:00] VITALS: BP 110/75
[2021-10-22 05:21] LABS: BASOPHILS % (AUTO) 0.5 % (0.0-5.0); EOSINOPHILS % (AUTO) 3.5 % (0.0-8.0); HEMATOCRIT 36.8 % (36-48); LYMPHOCYTES % (AUTO) 35.9 % (21.0-51.0); MEAN CORPUSCULAR HEMOGLOBIN 29.2 pg (27.0-33.0); MEAN CORPUSCULAR HGB CONC 33.2 g/dL (32.0-36.0); MONOCYTES % (AUTO) 8.4 % (3.0-13.0); NEUTROPHILS % (AUTO) 51.5 % (40.0-77.0); PLATELET COUNT (AUTO) 243 K/uL (130-400); RED BLOOD CELL COUNT(AUTO) 4.18 MIL/uL (4.00-5.50); RED CELL DISTRIBUTION WIDTH 11.8 % (11.0-15.5); WHITE BLOOD COUNT (AUTO) 5.7 K/uL (4.8-10.8)
[2021-10-22 05:35] LABS: ALBUMIN 3.2 g/dL (3.5-5.0); BILIRUBIN,TOTAL 0.3 mg/dL (0.2-1.0); CREATININE 0.7 mg/dL (0.5-1.5); POTASSIUM 3.9 mmol/L (3.5-5.1)
[2021-10-22] MEDS: ZOSYN 3.375GM +NS 50ML IV SCH ×3 (05:50→20:27)
[2021-10-22 07:52] VITALS: BP 126/72
[2021-10-22] MEDS: PANTOPRAZOLE 40 MG/VIAL IVP SCH ×2 (08:23→20:26)
[2021-10-22] MEDS: LISINOPRIL 20 MG TABLET PO SCH (08:24)
[2021-10-22] MEDS: GABAPENTIN 300 MG CAPSULE PO SCH ×2 (08:24→20:27)
[2021-10-22] MEDS: MELOXICAM 7.5 MG TABLET PO SCH (08:24)
[2021-10-22] MEDS: ENOXAPARIN SODIUM 40 MG/0.4 ML SYRINGE SQ SCH (08:25)
[2021-10-22 11:47] VITALS: BP 128/73
[2021-10-22] MEDS: ACETAMINOPHEN 325 MG TAB PO PRN ×2 (13:34→20:45)
[2021-10-22 16:00] VITALS: BP 121/82
[2021-10-22 20:17] VITALS: BP 140/90
[2021-10-22] MEDS: ZOLPIDEM TARTRATE 5 MG TAB PO SCH (20:26)
[2021-10-23 00:12] VITALS: BP 121/72
[2021-10-23] MEDS ORDERED: LOPERAMIDE HCL 2 MG CAP PO PRN (03:00)
[2021-10-23] MEDS: ZOSYN 3.375GM +NS 50ML IV SCH ×3 (04:35→19:41)
[2021-10-23 04:40] VITALS: BP 127/79
[2021-10-23 05:11] LABS: BASOPHILS % (AUTO) 0.7 % (0.0-5.0); MEAN CORPUSCULAR HEMOGLOBIN 29.3 pg (27.0-33.0); MEAN CORPUSCULAR VOLUME 88.9 fL (79-99); NEUTROPHILS % (AUTO) 52.1 % (40.0-77.0); PLATELET COUNT (AUTO) 265 K/uL (130-400); RED BLOOD CELL COUNT(AUTO) 4.16 MIL/uL (4.00-5.50); RED CELL DISTRIBUTION WIDTH 11.6 % (11.0-15.5)
[2021-10-23 05:39] LABS: ALBUMIN 3.3 g/dL (3.5-5.0); BILIRUBIN,TOTAL 0.3 mg/dL (0.2-1.0); CREATININE 0.6 mg/dL (0.5-1.5); POTASSIUM 3.8 mmol/L (3.5-5.1); TOTAL PROTEIN, SERUM 7.3 g/dL (6.0-8.3)
[2021-10-23 08:00] VITALS: BP 117/81
[2021-10-23] MEDS: PANTOPRAZOLE 40 MG/VIAL IVP SCH ×2 (08:08→19:40)
[2021-10-23] MEDS: GABAPENTIN 300 MG CAPSULE PO SCH ×2 (08:08→19:41)
[2021-10-23] MEDS: MELOXICAM 7.5 MG TABLET PO SCH (08:08)
[2021-10-23] MEDS: LISINOPRIL 20 MG TABLET PO SCH (08:08)
[2021-10-23] MEDS: ACETAMINOPHEN WITH CODEINE 1 TAB TAB PO PRN (08:09)
[2021-10-23] MEDS: ENOXAPARIN SODIUM 40 MG/0.4 ML SYRINGE SQ SCH (08:10)
[2021-10-23 12:10] VITALS: BP 113/77
[2021-10-23] MEDS ORDERED: DiphenhydrAMINE HCL 50 MG/ML VIAL IV PRN (12:30)
[2021-10-23 16:02] VITALS: BP 110/67
[2021-10-23] MEDS: ZOLPIDEM TARTRATE 5 MG TAB PO SCH (19:41)
[2021-10-23 19:46] VITALS: BP 117/71
[2021-10-24 04:21] VITALS: BP 113/66
[2021-10-24 05:05] LABS: BASOPHILS % (AUTO) 0.4 % (0.0-5.0); EOSINOPHILS % (AUTO) 2.6 % (0.0-8.0); HEMATOCRIT 38.2 % (36-48); LYMPHOCYTES % (AUTO) 33.6 % (21.0-51.0); MEAN CORPUSCULAR HEMOGLOBIN 29.1 pg (27.0-33.0); MEAN CORPUSCULAR HGB CONC 33.2 g/dL (32.0-36.0); MEAN CORPUSCULAR VOLUME 87.6 fL (79-99); MONOCYTES % (AUTO) 9.4 % (3.0-13.0); NEUTROPHILS % (AUTO) 53.7 % (40.0-77.0); PLATELET COUNT (AUTO) 274 K/uL (130-400); RED BLOOD CELL COUNT(AUTO) 4.36 MIL/uL (4.00-5.50); RED CELL DISTRIBUTION WIDTH 11.9 % (11.0-15.5)
[2021-10-24] MEDS: ZOSYN 3.375GM +NS 50ML IV SCH ×3 (05:15→21:33)
[2021-10-24 05:20] LABS: ALBUMIN 3.5 g/dL (3.5-5.0); BILIRUBIN,TOTAL 0.2 mg/dL (0.2-1.0); CREATININE 0.7 mg/dL (0.5-1.5); POTASSIUM 3.5 mmol/L (3.5-5.1); TOTAL PROTEIN, SERUM 7.5 g/dL (6.0-8.3)
[2021-10-24] MEDS ORDERED: DIATR MEGLU/DIATRIZOATE SODIUM 30 ML BOTTLE ONE (07:44)
[2021-10-24 08:00] VITALS: BP 129/79
[2021-10-24] MEDS: SIMETHICONE 80 MG TAB.CHEW PO SCH (09:19)
[2021-10-24] MEDS: ENOXAPARIN SODIUM 40 MG/0.4 ML SYRINGE SQ SCH (10:37)
[2021-10-24 12:00] VITALS: BP 131/80
[2021-10-24] MEDS: ACETAMINOPHEN WITH CODEINE 1 TAB TAB PO PRN ×2 (12:29→21:37)
[2021-10-24] MEDS: ONDANSETRON 4MG INJ IVP PRN (14:07)
[2021-10-24] MEDS: PANTOPRAZOLE 40 MG/VIAL IVP SCH ×2 (14:39→21:33)
[2021-10-24] MEDS: LISINOPRIL 20 MG TABLET PO SCH (14:40)
[2021-10-24] MEDS: MELOXICAM 7.5 MG TABLET PO SCH (14:40)
[2021-10-24] MEDS: GABAPENTIN 300 MG CAPSULE PO SCH ×2 (14:40→21:34)
[2021-10-24 15:50] VITALS: BP 129/75
[2021-10-24 20:00] VITALS: BP 119/77
[2021-10-24] MEDS: ZOLPIDEM TARTRATE 5 MG TAB PO SCH (21:33)
[2021-10-25] VITALS: BP 121/79
[2021-10-25 04:00] VITALS: BP 110/64
[2021-10-25] MEDS: ZOSYN 3.375GM +NS 50ML IV SCH ×2 (06:07→13:00)
[2021-10-25] MEDS: SIMETHICONE 80 MG TAB.CHEW PO SCH (07:46)
[2021-10-25] MEDS: ENOXAPARIN SODIUM 40 MG/0.4 ML SYRINGE SQ SCH (07:49)
[2021-10-25] MEDS: LISINOPRIL 20 MG TABLET PO SCH (07:49)
[2021-10-25] MEDS: GABAPENTIN 300 MG CAPSULE PO SCH (07:49)
[2021-10-25] MEDS: PANTOPRAZOLE 40 MG/VIAL IVP SCH (07:50)
[2021-10-25] MEDS: MELOXICAM 7.5 MG TABLET PO SCH (07:50)
[2021-10-25 08:26] VITALS: BP 117/68
[2021-10-25 11:01] VITALS: BP 117/74
[2021-10-25 15:48] VITALS: BP 112/61
== END 2021-10-25 18:22 | disposition home or self-care (01) | DRG 392 ==
LOC: EDH 09:57 → EDHIP 17:02 → OBSVTOIN 17:02 → 3DH 23:06
PROVIDERS: ADMIT Internal Medicine Pulmonary Disease; ATTEND Internal Medicine Pulmonary Disease
DX: K57.32 Diverticulitis of large intestine without perforation or abscess without bleeding (principal); K42.9 Umbilical hernia without obstruction or gangrene; E78.5 Hyperlipidemia, unspecified; E11.9 Type 2 diabetes mellitus without complications; K21.9 Gastro-esophageal reflux disease without esophagitis; I10 Essential (primary) hypertension; F41.9 Anxiety disorder, unspecified; G47.33 Obstructive sleep apnea (adult) (pediatric); E66.9 Obesity, unspecified; Z68.30 Body mass index [BMI] 30.0-30.9, adult; Z90.711 Acquired absence of uterus with remaining cervical stump; Z91.041 Radiographic dye allergy status; Z91.018 Allergy to other foods; Z88.1 Allergy status to other antibiotic agents; Z90.49 Acquired absence of other specified parts of digestive tract; Z91.19 Patient's noncompliance with other medical treatment and regimen; Z79.899 Other long term (current) drug therapy; Z80.51 Family history of malignant neoplasm of kidney; Z82.49 Family history of ischemic heart disease and other diseases of the circulatory system; Z83.3 Family history of diabetes mellitus
CPT/HCPCS: 36415; 74176; 80048; 80053; 82150; 82948; 83036; 83605; 83630; 83690; 83735; 84100; 85025; 87046; 87324; C9113; G0378; J1200; J1650; J1885; J2270; J2405; J2543; J3010; J7030; J7120; Q9963; Q9967

== ENCOUNTER 2023-11-11 22:21 | Emergency (ER) | payer BC ==
[~2023-11-11] VITALS: Ht 149.9 cm; Wt 69.9 kg
[~2023-11-11 22:21] MED LIST changes: -AMOX-429 PO; -BUSP5TAB3 PO; +HYOS-28 PO; +MELO-108 PO; -OMEP20TA25 PO; +ONDA4TAB4 PO; -SULFAD500 PO
[2023-11-11 23:23] LABS: BASOPHILS # (AUTO) 0.04 K/uL (0.00-0.20); BASOPHILS % (AUTO) 0.4 % (0.0-5.0); EOSINOPHILS # (AUTO) 0.09 K/uL (0.00-0.70); EOSINOPHILS % (AUTO) 0.8 % (0.0-8.0); HEMATOCRIT 46.4 % (36-48); IMMATURE GRANULOCYTE ABSOLUTE 0.03 K/uL (0-1); LYMPHOCYTES # (AUTO) 2.5 K/uL (1.0-4.8); LYMPHOCYTES % (AUTO) 21.8 % (21.0-51.0); MEAN CORPUSCULAR HEMOGLOBIN 29.3 pg (27.0-33.0); MEAN CORPUSCULAR HGB CONC 33.8 g/dL (32.0-36.0); MEAN CORPUSCULAR VOLUME 86.7 fL (79-99); MONOCYTES # (AUTO) 0.9 K/uL (0.1-1.0); NEUTROPHILS # (AUTO) 7.8 K/uL (1.8-7.7); NEUTROPHILS % (AUTO) 68.7 % (40.0-77.0); PLATELET COUNT (AUTO) 247 K/uL (130-400); RED BLOOD CELL COUNT(AUTO) 5.35 MIL/uL (4.00-5.50); RED CELL DISTRIBUTION WIDTH 12.5 % (11.0-15.5); WHITE BLOOD COUNT (AUTO) 11.4 K/uL (4.8-10.8)
[2023-11-11 23:32] LABS: CREATININE 0.6 mg/dL (0.5-1.5); POTASSIUM 3.6 mmol/L (3.5-5.1)
[2023-11-11 23:36] LABS: ALBUMIN 3.7 g/dL (3.5-5.0); TOTAL PROTEIN, SERUM 8.4 g/dL (6.0-8.3)
[2023-11-12] MEDS ORDERED: LACTATED RINGERS 1000ML 1,000 ML IV ONE (00:30)
[2023-11-12] MEDS ORDERED: METOCLOPRAMIDE 10 MG/2 ML VIAL IVP ONE (00:30)
[2023-11-12] MEDS ORDERED: KETOROLAC 30MG VIAL (30MG/ML) IVP ONE (00:30)
[2023-11-12] MEDS ORDERED: PANTOPRAZOLE 40 MG/VIAL IVP ONE (00:30)
[2023-11-12 00:54] LABS: APPEARANCE,URINE CLEAR (CLEAR); BILIRUBIN,URINE NEGATIVE (NEGATIVE); COLOR,URINE LIGHT-YELLOW (YELLOW); GLUCOSE, URINE (UA) NEGATIVE (NEGATIVE); KETONES,URINE 60 mg/dL (NEGATIVE); LEUKOCYTE ESTERASE ,URINE NEGATIVE Leu/uL (NEGATIVE); NITRATE,URINE NEGATIVE (NEGATIVE); OCCULT BLOOD,URINE NEGATIVE (NEGATIVE); PROTEIN,URINE 10 mg/dL (NEGATIVE); UROBILINOGEN,URINE 0.2 mg/dL (0.2-1.0)
[2023-11-12 00:58] LABS: ADD UA MICROSCOPIC YES; MUCUS,URINE RARE LPF (None Seen); RBC,URINE 0-1 /HPF (0-1); SQUAMOUS EPITHELIAL CELL,UR RARE /HPF (0-2)
[2023-11-12 01:01] LABS: AMYLASE 47 U/L (25-115)
[2023-11-12] MEDS ORDERED: METR-172 PO (02:09)
[2023-11-12] MEDS ORDERED: METO-296 PO (02:09)
[2023-11-12 03:07] VITALS: BP 102/54; PULSE 82; RESP 16; O2SAT 98
== END 2023-11-12 03:08 | disposition home or self-care (01) ==
LOC: EDH 22:21
DX: K57.32 Diverticulitis of large intestine without perforation or abscess without bleeding (principal); E11.9 Type 2 diabetes mellitus without complications; I10 Essential (primary) hypertension; Z79.1 Long term (current) use of non-steroidal anti-inflammatories (NSAID); Z79.899 Other long term (current) drug therapy; Z88.1 Allergy status to other antibiotic agents; Z88.8 Allergy status to other drugs, medicaments and biological substances; Z90.49 Acquired absence of other specified parts of digestive tract; Z91.041 Radiographic dye allergy status
CPT/HCPCS: 99284; 82150; 84484; 80053; 83690; 85025; 81001; 36415; 74176; 96374; 71045; 96361; 96375; J7120; J1885; C9113; J2765